=== PATIENT | male | born 1955 | race Caucasian/White ===

== ENCOUNTER 2017-12-19 18:48 | Inpatient (IN) | payer SELFPAY ==
[~2017-12-19] VITALS: Ht 190.5 cm; Wt 98.1 kg
[2017-12-19] MEDS ORDERED: DIPHENHYDRAMINE HCL INJ 50 MG/ML VIAL IV ONE (19:30)
[2017-12-19] MEDS ORDERED: SODIUM CHLORIDE 0.9% 1000ML 1,000 ML ONE (19:30)
[2017-12-19] MEDS ORDERED: VANCOMYCIN HCL 1 GM VIAL IV ONE (19:45)
[2017-12-19] MEDS ORDERED: CEFTRIAXONE SOD 1 GM VIAL IV ONE (19:45)
[2017-12-19] MEDS: SODIUM CHLORIDE 0.9% 1000ML 1,000 ML IV SCH (20:32)
[2017-12-19] MEDS ORDERED: METFORMIN HCL500 MG PO ×2 (20:42→20:53)
[2017-12-19] MEDS ORDERED: ONDANSETRON HCL INJ 2 MG/ML VIAL IV PRN (20:45)
[2017-12-19] MEDS ORDERED: DIPHENHYDRAMINE HCL INJ 50 MG/ML VIAL IV PRN (20:45)
[2017-12-19] MEDS ORDERED: ACETAMINOPHEN 325 MG TAB PO PRN (20:45)
[2017-12-19] MEDS ORDERED: MORPHINE SULFATE 2 MG/ML SYR IV PRN (21:00)
[2017-12-19] MEDS ORDERED: VANCOMYCIN 1GM/NS 250 ML 250 ML IV ONE (23:00)
[2017-12-20 00:13] VITALS: BP 141/76
[2017-12-20 04:22] VITALS: BP 146/76
[2017-12-20 08:00] VITALS: BP 153/87
[2017-12-20] MEDS: SODIUM CHLORIDE 0.9% 1000ML 1,000 ML IV SCH (08:04)
[2017-12-20] MEDS ORDERED: DEXTROSE 50% SYRINGE 50 ML IV PRN (08:30)
[2017-12-20 08:44] LABS: BASOPHILS % 0.3 % (0.0-1.0); EOSINOPHILS # (AUTO) 0.1 (0.0-0.4); EOSINOPHILS % 1.7 % (0.0-6.0); HEMATOCRIT 38.8 % (38.2-49.6); HEMOGLOBIN 12.6 g/dL (14.0-18.0); LYMPHOCYTES # (AUTO) 1.4 (1.0-3.2); LYMPHOCYTES % 18.3 % (18.0-39.1); MEAN CORPUSCULAR HEMOGLOBIN 30.3 pg (28-32); MEAN CORPUSCULAR HGB CONC 32.5 g/dL (31-35); MEAN CORPUSCULAR VOLUME 93.3 fL (81-99); MONOCYTES # (AUTO) 0.8 (0.2-0.8); MONOCYTES % 10.3 % (4.4-11.3); NEUTROPHILS # (AUTO) 5.3 (2.1-6.9); PLATELET COUNT 178 x10e3/uL (140-360); RED BLOOD COUNT 4.16 x10e6/uL (4.3-5.7); RED CELL DISTRIBUTION WIDTH 12.5 % (11.7-14.4)
[2017-12-20] MEDS: INSULIN LISPRO 100 UNIT/1 ML 3ML VIAL SQ SCH ×4 (09:00→21:00)
[2017-12-20 09:13] LABS: ALANINE AMINOTRANSFERASE 10 IU/L (0-55); ALBUMIN/GLOBULIN RATIO 0.9 (0.8-2.0); ALKALINE PHOSPHATASE 45 IU/L (40-150); ANION GAP 10.7 mmol/L (8-16); BLOOD UREA NITROGEN 9 mg/dL (7-26); BUN/CREATININE RATIO 12 (6-25); CALCIUM 8.4 mg/dL (8.4-10.2); CARBON DIOXIDE 25 mmol/L (22-29); CHLORIDE 104 mmol/L (98-107); CREATININE, SERUM 0.77 mg/dL (0.72-1.25); EST GLOMERULAR FILTRATION RATE > 60 ML/MIN (60-); GLUCOSE 238 mg/dL (74-118); POTASSIUM 3.7 mmol/L (3.5-5.1); SODIUM 136 mmol/L (136-145)
[2017-12-20] MEDS ORDERED: ACETAMINOPHEN/CODEINE 300MG - 30MG TAB PO PRN (11:45)
[2017-12-20 12:00] VITALS: BP 142/94
[2017-12-20] MEDS ORDERED: FUROSEMIDE INJ 10 MG/ML 2 ML VIAL IV ONE (12:30)
[2017-12-20] MEDS: VANCOMYCIN 1GM/NS 250 ML 250 ML IV SCH ×2 (13:00→23:57)
[2017-12-20] MEDS: METHYLPREDNISOLONE SOD SUCC 40 MG/ML VIAL IV SCH ×2 (13:12→21:00)
[2017-12-20 16:00] VITALS: BP 130/84
[2017-12-20] MEDS: METFORMIN HCL 500 MG TAB PO SCH (16:28)
[2017-12-20 19:20] VITALS: BP 144/86
[2017-12-21 00:40] VITALS: BP 124/64
[2017-12-21 05:00] VITALS: BP 117/59
[2017-12-21] MEDS: METHYLPREDNISOLONE SOD SUCC 40 MG/ML VIAL IV SCH ×3 (05:42→20:53)
[2017-12-21 07:04] LABS: INR 1.07; PROTHROMBIN TIME 13.1 seconds (11.9-14.5)
[2017-12-21 07:05] LABS: PARTIAL THROMBOPLASTIN TIME 24.5 seconds (23.8-35.5)
[2017-12-21] MEDS: INSULIN LISPRO 100 UNIT/1 ML 3ML VIAL SQ SCH ×4 (07:30→20:55)
[2017-12-21 08:00] VITALS: BP 137/99
[2017-12-21] MEDS: METFORMIN HCL 500 MG TAB PO SCH ×2 (09:14→18:45)
[2017-12-21 12:00] VITALS: BP 145/94
[2017-12-21] MEDS: VANCOMYCIN 1GM/NS 250 ML 250 ML IV SCH (12:36)
[2017-12-21 16:00] VITALS: BP 137/75
[2017-12-21 19:15] VITALS: BP 159/86
[2017-12-21] MEDS ORDERED: POTASSIUM CHLORIDE 20 MEQ TAB CR PO STA (20:16)
[2017-12-21] MEDS ORDERED: POTASSIUM CHLORIDE 20 MEQ TAB CR PO ONE (20:45)
--- NOTE | 2017-12-21 22:10 | Diagnostic Imaging Report ---
CHEST 2 VIEWS, Technique: CHEST 2 VIEWS Comparison: None Clinical history: Abnormal left lung base, reported cellulitis DISCUSSION: Heart/mediastinum: Heart size is upper limits of normal. Lung/mediastinum: No consolidation or edema. No effusion or pneumothorax. Bones: No acute abnormality. Irregular sclerosis overlying the right anterior first rib. IMPRESSION: 1. No acute abnormality. 2. Nonspecific sclerosis of the right anterior first rib. While this may be related to summation shadow, recommend comparison to priors or attention on short-term follow-up radiographs or CT to assess stability. Signed by: Dr Renita Henderson MD on 12/21/2017 10:06 PM
[2017-12-22] VITALS (7 sets, daily range): BP systolic 116–152; BP diastolic 69–89
[2017-12-22] MEDS ORDERED: SODIUM CHLORIDE 0.9% 250ML 250 ML ONE (00:23)
[2017-12-22] MEDS: VANCOMYCIN 1GM/NS 250 ML 250 ML IV SCH ×2 (00:24→12:30)
--- NOTE | 2017-12-22 03:20 | Progress Note ---
DATE: December 21, 2017 INTERNAL MEDICINE PROGRESS NOTE This is coverage for Dr. Rodriguez. SUBJECTIVE: Mr. Oconnor was seen and examined at bedside. He continues to have this diffuse rash throughout his body. It has not really gotten better so far. Pruritus is semi-controlled, although he still has active itching, but it is not getting worse. He is having bowel movements daily. He is eating moderate amounts. He is also voiding spontaneously. REVIEW OF SYSTEMS: No headaches, no double vision. OBJECTIVE: VITAL SIGNS: Afebrile, vital signs noted per electronic record. GENERAL: In no acute distress, alert and calm. HEENT: Normocephalic, atraumatic. NECK: Supple. Throat midline. LUNGS: Bilateral air entry, clear. CARDIOVASCULAR: S1, S2. No murmurs, rubs, or gallops. ABDOMEN: Soft, nontender. EXTREMITIES: No clubbing, no cyanosis, there is diffuse rash throughout. INTEGUMENT: Microscopic papular lesions, plaquing, linear erosions from scratching, worse in lower extremities, but also in upper body as well. LABS: Labs reviewed. No eosinophilia was noted. Creatinine was 0.77. IMPRESSION AND PLAN: 1. cellulitis, pustular. 2. Multiple microscopic plaques/papules. 3. Leg edema. 4. Diabetes. At this time, will repeat hemoglobin A1c. Will check urinalysis, check for red cells and protein. Check a 2-view chest x-ray given the previous abnormality of left lung base lesion as possibly a fat pad. Give some diuretics. Continue intravenous antibiotics for this widespread condition. Will consult wound care to assist, and local hygiene as well as diagnostics. Consideration can also include sarcoid, mycobacterial disease, fungal diseases among other. Patient does have . Continue antipyretic medications. Job#: [id number]
[2017-12-22] MEDS: FUROSEMIDE INJ 10 MG/ML 2 ML VIAL IV SCH ×2 (06:27→17:30)
[2017-12-22] MEDS: METHYLPREDNISOLONE SOD SUCC 40 MG/ML VIAL IV SCH ×2 (06:27→14:20)
[2017-12-22 06:49] LABS: ANION GAP 14.1 mmol/L (8-16); BLOOD UREA NITROGEN 17 mg/dL (7-26); BUN/CREATININE RATIO 20 (6-25); CALCIUM 9.1 mg/dL (8.4-10.2); CARBON DIOXIDE 23 mmol/L (22-29); CHLORIDE 104 mmol/L (98-107); CREATININE, SERUM 0.83 mg/dL (0.72-1.25); EST GLOMERULAR FILTRATION RATE > 60 ML/MIN (60-); GLUCOSE 330 mg/dL (74-118); LACTATE DEHYDROGENASE 187 IU/L (125-220); MAGNESIUM 1.8 MG/DL (1.3-2.1); POTASSIUM 4.1 mmol/L (3.5-5.1); SODIUM 137 mmol/L (136-145)
[2017-12-22 07:59] LABS: HIV 1&2 AB SCREEN NON-REACTIVE (NONREACTIVE)
[2017-12-22 08:00] LABS: BILIRUBIN,URINE NEGATIVE (NEGATIVE); CLARITY,URINE CLEAR (CLEAR); COLOR,URINE YELLOW (YELLOW); KETONES,URINE 2+ (NEGATIVE); LEUKOCYTE ESTERASE ,URINE NEGATIVE (NEGATIVE); NITRITE,URINE NEGATIVE (NEGATIVE); PROTEIN,URINE DIPSTICK NEGATIVE (NEGATIVE); URINE UROBILINOGEN 0.2 mg/dL (0.2 - 1)
[2017-12-22] MEDS: METFORMIN HCL 500 MG TAB PO SCH ×2 (08:19→16:50)
[2017-12-22] MEDS: INSULIN LISPRO 100 UNIT/1 ML 3ML VIAL SQ SCH ×4 (08:19→20:37)
[2017-12-22 08:20] LABS: BACTERIA,URINE RARE /HPF; EPITHELIAL CELLS,URINE RARE /LPF; WBC,URINE (MAN) 0-5 /HPF (0-5)
[2017-12-22] MEDS ORDERED: HYDROXYZINE HCL 10 MG TAB PO PRN (09:30)
[2017-12-22 10:10] LABS: FERRITIN 190.97 ng/mL (21.81-274.66)
--- NOTE | 2017-12-22 10:22 | Consultation ---
DATE OF CONSULTATION: December 22, 2017 WOUND CARE CONSULTATION Thank you, Dr. Maher, for asking me to see this patient. HISTORY OF PRESENT ILLNESS: This 62-year-old male patient, with history of diabetes with chronic pruritus and leg swelling, was admitted with intense pruritus with multiple nodular lesions to the extremities. PAST MEDICAL HISTORY: Diabetes mellitus. MEDICATIONS 1. Lasix 20 mg b.i.d. 2. Diphenhydramine. 3. Metformin 1,000 mg b.i.d. ALLERGIES: NONE. PHYSICAL EXAMINATION VITALS: Blood pressure 180/70, pulse 80. HEENT: Normal. NECK: No JVD. LUNGS: Bilaterally normal. ABDOMEN: Bowel sounds normal. LOWER EXTREMITIES: 3+ edema affecting both lower extremities. Erythema of the left from chronic edema and multiple scratch schuler noted to the leg. SKIN: Multiple nodular lesions with purulent drainage noted consistent with prurigo nodularis infection. ASSESSMENT: Prurigo nodularis with secondary infection. PLAN: Continue vancomycin. Will open abscess tomorrow. Discussed with the patient to keep the skin moist, to apply moisturizing cream every 3 hours and steroid cream for itching as needed, and doxepin 10 mg t.i.d. for pruritus. Control diabetes. Thank you, Dr. Rodriguez and Dr. Maher, for asking me to see this patient. I will follow with you. Job#: [id number]
[2017-12-22] MEDS: TRIAMCINOLONE 0.1% OINTMENT 15 GM TUBE TP SCH ×2 (15:18→20:38)
[2017-12-22] MEDS: DOXEPIN HCL 10 MG CAP PO SCH ×3 (20:36→21:15)
--- NOTE | 2017-12-22 21:53 | Progress Note ---
DATE: December 22, 2017 INTERNAL MEDICINE PROGRESS NOTE SUBJECTIVE: Patient was seen and examined at bedside. Wound care note was appreciated. to have good comfort taking care of this kind of syndrome. Patient with chest x-ray, which showed clear lungs. Lesions are draining, slightly less inflammatory today. REVIEW OF SYSTEMS: No headaches, no bleeding. OBJECTIVE: VITAL SIGNS: Afebrile, vital signs noted per electronic record. GENERAL: In no acute distress, alert and calm. HEENT: Normocephalic, atraumatic. NECK: Supple. Throat midline. LUNGS: Bilateral air entry, clear. CARDIOVASCULAR: S1, S2. No murmurs, rubs or gallops. ABDOMEN: Soft, nontender. EXTREMITIES: No clubbing, no cyanosis, there is 2+ edema, all the way to the thighs. INTEGUMENT: Diffuse rash was noted, multiple nodular lesions with purulent drainage noted consistent with infection. LABS: 4.1 potassium, 17 BUN, 0.8 creatinine. 7.6 white count, 30 hematocrit on December 20. IMPRESSIONS AND PLAN 1. Severe generalized cellulitis. 2. Underlying prurigo nodularis infection. 3. Chronic uncontrolled diabetes. 4. Generalized edema. 5. Reported eczema in the past. Continue antibiotics including vancomycin. We appreciate wound care, debridement, and will open up more lesions tomorrow. Except to send for cultures as well. Continue steroid clean as itching is persistent. Doxazosin as well for pruritus. Patient needs diabetes control alf. Will wean the steroids that are systemic at this time for safety. Continue wound care. Job#: [id number] CQ
[2017-12-23] VITALS (8 sets, daily range): BP systolic 106–128; BP diastolic 66–76
[2017-12-23] MEDS: VANCOMYCIN HCL 1.25 GM in SODIUM CHLORIDE 0.9% 250ML 250 ML IV SCH ×2 (00:49→12:30)
[2017-12-23] MEDS: FUROSEMIDE INJ 10 MG/ML 2 ML VIAL IV SCH ×2 (05:19→16:38)
[2017-12-23] MEDS: INSULIN LISPRO 100 UNIT/1 ML 3ML VIAL SQ SCH ×4 (07:30→21:28)
[2017-12-23] MEDS: METFORMIN HCL 500 MG TAB PO SCH ×2 (08:14→16:38)
[2017-12-23] MEDS: TRIAMCINOLONE 0.1% OINTMENT 15 GM TUBE TP SCH ×3 (08:15→21:23)
[2017-12-23] MEDS ORDERED: LIDOCAINE HCL 2% LOCAL 20 ML VIAL INJ ONE (10:15)
--- NOTE | 2017-12-23 22:40 | Progress Note ---
DATE: December 23, 2017 INTERNAL MEDICINE PROGRESS NOTE SUBJECTIVE: Mr. Oconnor was seen and examined at bedside. 98% oxygen saturation. He is on room air. He is having bowel movements. There is much less erythema and much less itching on medicines. Patient did have one of the lesions today. Urinating well, on diuretics. REVIEW OF SYSTEMS: No headaches, no diarrhea. OBJECTIVE: VITAL SIGNS: Afebrile, vital signs noted per electronic record. GENERAL: In no acute distress, alert and calm. HEENT: Normocephalic, atraumatic. NECK: Supple. Throat midline. LUNGS: Bilateral air entry, clear. CARDIOVASCULAR: S1, S2. No murmurs, rubs, or gallops. ABDOMEN: Soft, nontender. EXTREMITIES: No clubbing, no cyanosis, there is still about 2+ edema. INTEGUMENT: With widespread rash, but much less erythematous than before, but still widespread. IMPRESSION AND PLAN: 1. Severe generalized cellulitis. 2. Infected prurigo nodularis infection. 3. Uncontrolled diabetes chronically. 4. Generalized edema. 5. Reported eczema in the past. Continue doxepin. Continue diphenhydramine tablets. Continue steroids cream. Continue to diurese him. Will follow along closely. Follow up on cultures and biopsy sent today. Job#: [id number]
[2017-12-24] VITALS (7 sets, daily range): BP systolic 102–121; BP diastolic 62–76
[2017-12-24] MEDS: VANCOMYCIN HCL 1.25 GM in SODIUM CHLORIDE 0.9% 250ML 250 ML IV SCH ×2 (00:25→12:54)
[2017-12-24] MEDS: FUROSEMIDE INJ 10 MG/ML 2 ML VIAL IV SCH ×2 (06:10→16:58)
[2017-12-24 06:39] LABS: ANION GAP 12.6 mmol/L (8-16); BLOOD UREA NITROGEN 20 mg/dL (7-26); BUN/CREATININE RATIO 26 (6-25); CALCIUM 8.6 mg/dL (8.4-10.2); CARBON DIOXIDE 31 mmol/L (22-29); CHLORIDE 100 mmol/L (98-107); CREATININE, SERUM 0.78 mg/dL (0.72-1.25); EST GLOMERULAR FILTRATION RATE > 60 ML/MIN (60-); GLUCOSE 196 mg/dL (74-118); MAGNESIUM 1.7 MG/DL (1.3-2.1); POTASSIUM 3.6 mmol/L (3.5-5.1); SODIUM 140 mmol/L (136-145)
[2017-12-24] MEDS: METFORMIN HCL 500 MG TAB PO SCH ×2 (08:25→16:54)
[2017-12-24] MEDS: TRIAMCINOLONE 0.1% OINTMENT 15 GM TUBE TP SCH ×3 (08:25→21:35)
[2017-12-24] MEDS: INSULIN LISPRO 100 UNIT/1 ML 3ML VIAL SQ SCH ×4 (08:25→22:02)
[2017-12-24] MEDS: DOXEPIN HCL 10 MG CAP PO SCH (21:40)
[2017-12-25 00:09] VITALS: BP 126/67
[2017-12-25] MEDS ORDERED: HYDROXYZINE HCL10 MG PO (01:54)
[2017-12-25] MEDS ORDERED: DOXEPIN HCL10 MG PO (01:54)
[2017-12-25] MEDS ORDERED: TRIAMCINOLONE A15 G3 TP (01:54)
[2017-12-25] MEDS ORDERED: LASIX40 MG PO (01:54)
[2017-12-25] MEDS ORDERED: LEVAQUIN500 MG PO (01:54)
[2017-12-25] MEDS ORDERED: ACETAMINOPHEN325 M1 PO (01:54)
[2017-12-25] MEDS: VANCOMYCIN HCL 1.25 GM in SODIUM CHLORIDE 0.9% 250ML 250 ML IV SCH ×2 (02:00→12:00)
--- NOTE | 2017-12-25 02:41 | Progress Note ---
DATE: December 24, 2017 INTERNAL MEDICINE PROGRESS NOTE SUBJECTIVE: Mr. Oconnor continues to have some improved progress. There is decreased erythema. He is still itching a lot, but this is definitely better than before. Patient getting increased diuretics today and he is tolerating it well so far. Blood sugar remains higher. REVIEW OF SYSTEMS: No bleeding, no constipation. OBJECTIVE: VITAL SIGNS: Afebrile, vital signs noted per electronic record. GENERAL: In no acute distress, alert and calm. HEENT: Normocephalic, atraumatic. NECK: Supple. Throat midline. LUNGS: Bilateral air entry, mostly clear. CARDIOVASCULAR: S1, S2. No murmurs, rubs, or gallops. ABDOMEN: Soft, nontender. EXTREMITIES: No clubbing, no cyanosis, there is still about 2+ edema. INTEGUMENT: No rash, no purpura. LABS: 3.6 potassium, 31 bicarbonate, 20 BUN, 0.8 creatinine. Glucose 196 to 247, slightly better today than yesterday. IMPRESSION AND PLAN: 1. Prurigo nodularis, infected. 2. Widespread pruritus. 3. Widespread cellulitis with infection over large biceps area. 4. Diabetes, uncontrolled. 5. Edema. Continue Lasix at increased dose. Will follow up as insulin and glucose shows better control. It is improving. Patient is off the steroids since yesterday. Give some potassium today. If patient continues to improve, will consider discharge home. Job#: [id number]
[2017-12-25] MEDS: FUROSEMIDE INJ 10 MG/ML 2 ML VIAL IV SCH (05:06)
[2017-12-25 05:20] VITALS: BP 137/64
[2017-12-25] MEDS ORDERED: POTASSIUM CHLORIDE 20 MEQ TAB CR PO ONE (07:00)
[2017-12-25 07:49] VITALS: BP 110/73
[2017-12-25] MEDS: TRIAMCINOLONE 0.1% OINTMENT 15 GM TUBE TP SCH (08:22)
[2017-12-25] MEDS: METFORMIN HCL 500 MG TAB PO SCH (08:22)
[2017-12-25] MEDS: INSULIN LISPRO 100 UNIT/1 ML 3ML VIAL SQ SCH ×2 (08:22→12:00)
[2017-12-25 10:04] VITALS: BP 110/73
[2017-12-25] MEDS ORDERED: BACTRIM DS TAB1 EACH PO (10:56)
[2017-12-25 11:39] VITALS: BP 112/77
--- NOTE | 2017-12-26 04:27 | Discharge Summary ---
PRIMARY CARE DOCTOR: [facility] coverage with Dr. Rodriguez. CONSULTANTS: Dr. Matos PRIMARY DIAGNOSIS: Large multiple cellulitis. SECONDARY DIAGNOSES 1. Infected prurigo nodularis. 2. Diabetes, totally uncontrolled. 3. Extensive pruritus. 4. Fluid overload, significant leg edema. DIET AT DISCHARGE: Diabetes diet. MEDICATIONS AT DISCHARGE: See medication record for details. ACTIVITY: As tolerated. HOSPITAL COURSE: Mr. Oconnor is a 62-year-old gentleman with hemoglobin A1c of greater than 14%. He is having refractory cellulitis, swelling and multiple red nodules and cellulitis all over his body from the chest down. The patient has been refractory to outpatient followup and even hospitalization. Wound care expert visited the patient and gave appropriate diagnosis. Biopsy taken of skin, which did not show any immunoglobulin or complement deposition on skin biopsy. The patient improved on antipyretic agents and topical steroids. We counseled him strongly on long-term control of skin process, as well as diabetes. Greater than 30 minutes in care and coordination to discharge. AYESHA COX MD Job#: [id number] PARISA
[2017-12-31 12:28] LABS: ENDOMYSIAL ANTIBODIES, IGA Negative
== END 2017-12-25 14:10 | disposition home or self-care (01) | DRG 607 ==
LOC: FSED 18:48 → MED/SURG2 22:36
PROVIDERS: ADMIT Internal Medicine; ATTEND Internal Medicine
DX: L28.1 Prurigo nodularis (principal); E11.65 Type 2 diabetes mellitus with hyperglycemia; L03.114 Cellulitis of left upper limb; L03.113 Cellulitis of right upper limb; L03.90 Cellulitis, unspecified; L29.9 Pruritus, unspecified; E87.70 Fluid overload, unspecified; R60.0 Localized edema
CPT/HCPCS: 36415; 71046; 80048; 80053; 80202; 81001; 82728; 82784; 82785; 82948; 83036; 83516; 83540; 83615; 83735; 84466; 85025; 85610; 85730; 86039; 86256; 86431; 87040; 87390; 96367; 99283; G0433; G0435; J0696; J1200; J1940; J2001; J2920; J3370; J7030; J7050